=== PATIENT | male | born 1990 | race African-American/Black ===

== ENCOUNTER 2018-05-06 18:38 | Emergency (ER) | payer SELFPAY ==
[~2018-05-06] VITALS: Ht 165.1 cm; Wt 108.9 kg
[2018-05-06 18:46] VITALS: BP_SYST 121
--- NOTE | 2018-05-06 18:48 | NUR ---
Patient to ER bed 07 to gown for evaluation. Side rails up.
--- NOTE | 2018-05-06 18:51 | NUR ---
Patient presents to the ER with C/O cough. Patient ambulating, A & O x4, denies SOB, VS stable, respirations equal & unlabored, afebrile.
--- NOTE | 2018-05-06 19:21 | NUR ---
Report given to Dianne BURGOS
[2018-05-06 19:30] VITALS: BP_SYST 121
--- NOTE | 2018-05-06 19:30 | NUR ---
Pt no longer in room for discharge, Attempted to call pt on number provided in chart however, wrong number was given. Pt left without discharge/after care. ER MD and charge made aware.
--- NOTE | 2018-05-06 20:08 | NUR ---
Note chelo in EDM - 05/06/18 at 2009 by [email or web address] Pt no longer in room for discharge, Attempted to call pt on number provided in chart however, wrong number was given. Pt left without discharge/after care. ER MD and charge made aware.
== END 2018-05-06 19:30 | disposition home or self-care (01) ==
LOC: SED 18:38
DX: J06.9 Acute upper respiratory infection, unspecified (principal); R03.0 Elevated blood-pressure reading, without diagnosis of hypertension; Z88.8 Allergy status to other drugs, medicaments and biological substances
CPT/HCPCS: 99281